=== PATIENT | male | born 1955 | race Caucasian/White ===

== ENCOUNTER → 2021-04-21 09:50 | Outpatient (CLI) | payer OTHER, MEDICARE, SELFPAY ==
--- NOTE | ~2021-04-21 | XR_ITS ---
EXAMINATION: XR foot LT min 3V EXAM DATE: 04/21/2021 10:37 INDICATION: M79.642 - Pain in left foot. pt c/o pain in right hand 2nd digit PIP Joint, c/o pain in l eft foot calcaneus x couple weeks, pt stated suspects pulled tendon in right hand between 3rd and 4th metacarpals anterior, no trauma, no fx, no surg. TECHNIQUE: Left foot dorsoplantar, lateral and oblique projections obtained and reviewed. There is n o prior study for comparison. FINDINGS: Left metatarsal bones unremarkable. Calcaneus unremarkable. There is moderate left 1st met atarsophalangeal joint primary osteoarthritis. There are no acute fractures or dislocations identifie d. There is no subcutaneous gas. The soft tissue is unremarkable. There are no radiopaque foreign bodies. 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 Reviewed, dictated and finalized at location A.
--- NOTE | ~2021-04-21 | XR_ITS ---
EXAMINATION: XR hand RT min 3V EXAM DATE: 04/21/2021 10:37 INDICATION: M79.641 - Pain in right hand . TECHNIQUE: Right hand frontal, lateral and oblique projections obtained and reviewed. There is no pr ior study for comparison. FINDINGS: Right metacarpal bones are unremarkable. There is mild polyarticular interphalangeal prim cecilio osteoarthritis. There are no acute fractures or dislocations identified. There is no subcutaneou s gas. There is soft tissue swelling over the 2nd and 3rd proximal interphalangeal joint. There are no radiopaque foreign bodies. IMPRESSION: 1. Mild right finger polyarticular osteoarthritis. 2. Nonspecific swelling. Reviewed, dictated and finalized at location A.
== END ==
PROVIDERS: PCP Family Medicine; Visit Provider Family Medicine
DX: M79.89 Other specified soft tissue disorders (principal); M19.072 Primary osteoarthritis, left ankle and foot; M19.041 Primary osteoarthritis, right hand
CPT/HCPCS: 73130; 73630

== ENCOUNTER → 2021-09-21 10:51 | Outpatient (CLI) | payer OTHER, MEDICARE, SELFPAY ==
--- NOTE | ~2021-09-21 | MR_ITS ---
EXAMINATION: MR lumbar spine wo/w con DATE: 09/21/2021 11:51 INDICATION: Low back pain. TECHNIQUE: Magnetic resonance imaging (MRI) of the lumbar spine was performed without and with 13 mL MultiHance intravenous contrast. Sequences included sagittal T2-weighted FSE, sagittal T2-weighted FS FSE, and sagittal and axial T1-weighted FSE. Postcontrast sequences included axial T2-weighted FSE a nd axial and sagittal T1-weighted FS FSE. COMPARISON: None FINDINGS: Bone alignment is normal. Vertebral body heights are normal. Intervertebral disc heights ar e normal in lumbar spine. The distal spinal cord signal intensity is normal. The conus medullaris is at L1. The following disc levels are specifically discussed: L1-L2: The disc does not extend beyond the endplate margin. There is mild right and moderate left fac et joint osteoarthritis. There is no neural foraminal stenosis. There is no central canal stenosis. L2-L3: The disc does not extend beyond the endplate margin. There is moderate right and severe left f acet joint osteoarthritis. There is no neural foraminal stenosis. There is no central canal stenosis. L3-L4: The disc is mildly bulging. There is severe bilateral facet joint osteoarthritis. There is mil d bilateral neural foraminal stenosis. There is no central canal stenosis. L4-L5: The disc is mildly bulging. There is severe right and moderate left facet joint osteoarthritis . There is mild bilateral neural foraminal stenosis. There is no central canal stenosis. L5-S1: The disc does not extend beyond the endplate margin. There is severe right and moderate left f acet joint osteoarthritis. There is no neural foraminal stenosis. There is no central canal stenosis. IMPRESSION: 1. Mild lumbar spondylosis. Reviewed, dictated and finalized at location A. INSPECTOR IMPRESSION: 1. Mild lumbar spondylosis.
[2021-09-21 11:22] LABS: Estimated Glomerular Filt Rate > 60
== END ==
PROVIDERS: PCP Family Medicine; Visit Provider Pain Medicine Pain Medicine
DX: G97.1 Other reaction to spinal and lumbar puncture (principal); M47.817 Spondylosis without myelopathy or radiculopathy, lumbosacral region
CPT/HCPCS: 72158; A9577

== ENCOUNTER → 2021-10-14 13:23 | Outpatient (CLI) | payer OTHER, MEDICARE, SELFPAY ==
--- NOTE | ~2021-10-14 | XR_ITS ---
XR cervical spine 4-5V DATE: 10/14/2021 14:01 INDICATION: Cervical and thoracic radiculopathy TECHNIQUE: AP, lateral, swimmer, open-mouth views COMPARISON: None FINDINGS: C1 and C2 are normally aligned and the odontoid process is intact. C2-3 and C3-4 interspaces are well preserved but there is mild retrolisthesis at C3-4. Status post anterior surgical fusion at C4-5 and C5-6. 1.5 mm anterolisthesis at C6-7. No fracture is evident. IMPRESSION: Status post anterior cervical spine fusion at C4-5 and C5-6 Mild retrolisthesis at C3-4 1.5 mm anterolisthesis at C6-7 Reviewed, dictated and finalized at location A. [employer]GER
--- NOTE | ~2021-10-14 | XR_ITS ---
XR thoracic spine 2V 10/14/2021 14:01 Indication: Back pain and radiculopathy Procedure: 3 views of the thoracic spine Comparison: Cervical spine series dated 10/14/2021 and thoracic spine dated 05/06/2000 Findings: There is mild disc height loss at multiple levels with small marginal osteophytes ventrally at multiple levels. Accentuated thoracic kyphosis. Pedicles intact. No paraspinal soft tissue abnorm ality. No surgical changes partially visualized in the cervical spine. No fracture or traumatic malal ignment. Impression: 1: Mild thoracic spondylosis with accentuated kyphosis. Reviewed, dictated and finalized at location A. PLEATER Impression: 1: Mild thoracic spondylosis with accentuated kyphosis.
== END ==
PROVIDERS: PCP Internal Medicine; Visit Provider Pain Medicine Interventional Pain Medicine
DX: M54.14 Radiculopathy, thoracic region (principal); M54.12 Radiculopathy, cervical region; M47.814 Spondylosis without myelopathy or radiculopathy, thoracic region; M40.294 Other kyphosis, thoracic region; Z98.1 Arthrodesis status; M43.12 Spondylolisthesis, cervical region
CPT/HCPCS: 72050; 72070

== ENCOUNTER → 2022-02-16 09:35 | Outpatient (CLI) | payer OTHER, MEDICARE, SELFPAY ==
--- NOTE | ~2022-02-16 | MR_ITS ---
EXAMINATION: MR brain/brain stem wo con DATE: 02/16/2022 10:14 INDICATION: Arm tremor and spasticity. Assess for multiple sclerosis. TECHNIQUE: Magnetic resonance imaging (MRI) of the brain and brainstem was performed without intraven ous contrast. Sequences included sagittal and axial T1-weighted FLAIR, axial T1-weighted FSE, axial d iffusion-weighted FS EPI, sagittal T2-weighted FLAIR, axial T2*-weighted GRE, axial T2-weighted FLAIR Propeller, and axial T2-weighted Propeller. Apparent diffusion coefficient (ADC) maps were created. COMPARISON: Brain MR dated 07/26/2010 FINDINGS: There are no areas of restricted diffusion to suggest acute infarction. No intracranial hemorrhage or abnormal intracranial mass lesion. There are 3 small nonspecific foci of white matter T2 hyperintens ity one in the right irene, one in the periventricular right occipital white matter and one in the lef t frontal lobe portillo radiata. No pericallosal white matter T2 hyperintensities. There are no intrapa renchymal signal abnormalities seen on the other pulse sequences. The ventricles are symmetric and no rmal in size. There are no abnormal extra-axial fluid collections. Flow voids are seen in the cerebra l arteries on the T2-weighted sequences consistent with their expected patency. Small amount of T2 hy perintense fluid/mucus surrounding a large mucous retention cyst in the right maxillary sinus. Additi onal smaller amount of mucous and/or mucous retention cyst in the posterior left maxillary sinus. Mil d mucosal thickening the bilateral ethmoid sinuses. Right mastoid effusion. Visualized orbits and sof t tissues are unremarkable. Partially visualized metallic magnetic field artifact centered at the mid cervical spine corresponding on cervical spine radiographs dated 10/14/2021 to C4-C5 and C5-C6 interbo dy bone graft cages for anterior spinal fusion. IMPRESSION: 1. 3 nonspecific small foci of white matter T2 hyperintensity. Although differential for T2 hyperinte nse white matter lesions includes multiple sclerosis, the quantity and extent is well within normal l imits for age, most often related to chronic small vessel ischemic disease. No pericallosal white mat ter lesions to more specifically elevate suspicion for multiple sclerosis. Reviewed, dictated and finalized at location APaulina IMPRESSION: 1. 3 nonspecific small foci of white matter T2 hyperintensity. Although differe ntial for T2 hyperintense white matter lesions includes multiple sclerosis, the quantity and extent is well within normal limits for age, most often related t o chronic small vessel ischemic disease. No pericallosal white matter lesions t o more specifically elevate suspicion for multiple sclerosis.
== END ==
PROVIDERS: PCP Family Medicine; Visit Provider Family Medicine
DX: G25.2 Other specified forms of tremor (principal); R93.0 Abnormal findings on diagnostic imaging of skull and head, not elsewhere classified
CPT/HCPCS: 70551

== ENCOUNTER → 2022-11-15 11:56 | Outpatient (CLI) | payer OTHER, MEDICARE, SELFPAY ==
--- NOTE | ~2022-11-15 | MR_ITS ---
EXAMINATION: MR pituitary wo/w con DATE: 11/15/2022 13:03 INDICATION: Pituitary adenoma. TECHNIQUE: Magnetic resonance imaging (MRI) of the brain and brainstem was performed without and with 13 mL MultiHance intravenous contrast. COMPARISON: Brain MRI 02/16/2022 FINDINGS: The pituitary is normal in size with height of 4 mm and concave superior margin. There are scattered areas of nonspecific increased T2-weighted signal intensity in the cerebral white matter, w hich is within normal limits for the patient's age. There is no intracranial hemorrhage, acute infarc tion, or abnormal intracranial mass lesion. The ventricles are normal in size. There is mucosal thick ening in the paranasal sinuses. There is a right mastoid effusion. The orbits are normal. IMPRESSION: 1. Normal aging brain. Normal pituitary. Reviewed, dictated and finalized at location A.
== END ==
PROVIDERS: PCP Family Medicine; Visit Provider Internal Medicine Endocrinology, Diabetes & Metabolism
DX: D35.2 Benign neoplasm of pituitary gland (principal)
CPT/HCPCS: 70553; A9577

== ENCOUNTER 2022-12-11 10:03 | Outpatient (CLI) | payer OTHER, MEDICARE, SELFPAY ==
--- NOTE | ~2022-12-11 | US_ITS ---
EXAMINATION: US scrotum doppler DATE: 12/11/2022 10:49 INDICATION: Low testosterone. Evaluate testicles. TECHNIQUE: Testicular sonogram utilizing grayscale and Doppler COMPARISON: None. FINDINGS: The right testis measures 5.2 x 2.9 x 1.9 cm. The left testis measures 5.1 x 3.1 x 2.4 cm. Symmetric normal grayscale appearance to both testes. There is normal vascular flow to both testes. The right e pididymis is normal with normal vascular flow. The left epididymis is normal with normal vascular everardo w. There is no varicocele or hydrocele. IMPRESSION: 1. Normal scrotal ultrasound. Reviewed, dictated and finalized at location B.
[2022-12-11 11:18] LABS: Cholesterol 217 mg/dL (0-200); HDL Direct 57 mg/dL; Triglycerides 200 mg/dL (<150)
[2022-12-11 11:32] LABS: LDL Cholesterol Direct 123 mg/dL
[2022-12-14 14:56] LABS: Sex Hormone Binding Globulin 90 nmol/L (22-77)
== END 2022-12-11 10:04 | disposition home or self-care (01) ==
PROVIDERS: PCP Family Medicine; Visit Provider Internal Medicine Endocrinology, Diabetes & Metabolism
DX: D35.2 Benign neoplasm of pituitary gland (principal); E22.8 Other hyperfunction of pituitary gland; R89.9 Unspecified abnormal finding in specimens from other organs, systems and tissues; N50.89 Other specified disorders of the male genital organs
CPT/HCPCS: 36415; 76870; 80061; 84270; 93976

== ENCOUNTER 2025-04-17 08:09 | Outpatient (CLI) | payer OTHER, MEDICARE, SELFPAY ==
--- NOTE | ~2025-04-17 | CT_ITS ---
EXAMINATION: CT sinus wo con DATE: 04/17/2025 08:27 INDICATION: Sinus disease. Mucocele of the nose. TECHNIQUE: Computed tomography (CT) of the paranasal sinuses was performed without intravenous contrast. The dose-length product was 257.89 mGy-cm. Automated exposure control and iterative reconstruction technique were employed. COMPARISON: None FINDINGS: There is mucosal thickening of the ethmoid, maxillary, frontal and left sphenoid sinuses. Mastoids are pneumatized. No significant nasal septal deviation. There is a right mastoid effusion. IMPRESSION: 1. Mild pansinus disease. 2: Right mastoid effusion. Reviewed, dictated and finalized at location O.
== END 2025-04-17 08:10 | disposition home or self-care (01) ==
LOC: MICIMG 08:10
PROVIDERS: PCP Family Medicine; Visit Provider Physician Assistant Medical
DX: J34.1 Cyst and mucocele of nose and nasal sinus (principal)
CPT/HCPCS: 70486